=== PATIENT | female | born 1960 | race Caucasian/White ===

== ENCOUNTER → 2020-06-18 | Outpatient (CLI) | payer OTHER ==
[~2020-06-18] MED LIST: AMOXICILLIN500 M2 PO; CALCIUM 6001 TA1; CARVEDILOL3.125 MG PO; CLEOCIN150 MG PO; FORTICAL200 IU/ACT; NORCO 10-325 T1 EACH PO; THE MEDICINE S400 IU
== END | disposition home or self-care (01) ==
LOC: CARD 06-12 08:30
PROVIDERS: ATTEND Internal Medicine Cardiovascular Disease
DX: R06.09 Other forms of dyspnea (principal)

== ENCOUNTER 2020-09-14 20:14 | Emergency (ER) | payer BC ==
[~2020-09-14] VITALS: Wt 113.4 kg
[2020-09-14 20:37] LABS: BASO # 0.1 10*3/uL (0.0-0.1); EOS # 0.1 10*3/uL (0.0-0.4); EOS % 1.9 % (1.0-4.0); HEMATOCRIT 43.9 % (37.0-47.0); LYMPH # 1.9 10*3/uL (1.3-4.4); LYMPH % 27.9 % (27.0-41.0); MEAN CELL VOLUME 86.2 fl (81.0-99.0); MEAN CORPUSCULAR HGB 28.5 pg (27.0-31.0); MONO # 0.4 10*3/uL (0.1-1.0); MONO % 6.1 % (3.0-9.0); NEUT # 4.2 10*3/uL (2.3-7.9); PLATELET COUNT AUTOMATED 189 10*3/uL (130-400); RED BLOOD COUNT 5.09 10*6/uL (4.10-5.10); RED CELL DISTRI WIDTH 12.7 % (0-14.5); WHITE BLOOD COUNT 6.7 10*3/uL (4.8-10.8)
[2020-09-14 20:47] LABS: ACT PARTIAL THROMBO TIME 26.4 SECONDS (20.0-32.1)
[2020-09-14 20:54] LABS: ALBUMIN 3.8 gm/dl (3.1-4.5); ALKALINE PHOSPHATASE 125 U/L (45-117); BUN 18 mg/dl (7-24); CHLORIDE 107 mmol/L (98-107); CREATININE 0.79 mg/dL (0.55-1.02); POTASSIUM 3.8 mmol/L (3.5-5.1); SGOT/AST 17 IU/L (3-35); SGPT/ALT 43 U/L (12-78); SODIUM 139 mmol/L (136-145); TOTAL PROTEIN 7.8 gm/dL (6.4-8.2)
[2020-09-14] MEDS ORDERED: ATORVASTATIN CA20 M1 PO (20:54)
[2020-09-14] MEDS ORDERED: VITAMIN D350 MC2 PO (20:55)
[2020-09-14] MEDS ORDERED: LOSARTAN POTASS25 M1 PO (20:55)
[2020-09-14] MEDS ORDERED: QUALITY CHOICE81 M1 PO (20:56)
[2020-09-14 20:57] LABS: TROPONIN I < 0.015 ng/ml (<0.045)
== END 2020-09-14 22:48 | disposition home or self-care (01) ==
LOC: ED 20:14
PROVIDERS: Internal Medicine
DX: I10 Essential (primary) hypertension (principal); R07.89 Other chest pain; R68.84 Jaw pain; Z79.899 Other long term (current) drug therapy; Z98.51 Tubal ligation status; Z79.82 Long term (current) use of aspirin; Z98.890 Other specified postprocedural states; Z87.891 Personal history of nicotine dependence

== ENCOUNTER → 2020-10-15 | Outpatient (CLI) | payer BC ==
[~2020-10-15] MED LIST changes: +ATORVASTATIN CA20 M1 PO; +LOSARTAN POTASS25 M1 PO; +QUALITY CHOICE81 M1 PO; +VITAMIN D350 MC2 PO
== END | disposition home or self-care (01) ==
LOC: CARD 00:02
PROVIDERS: ATTEND Internal Medicine Cardiovascular Disease
DX: R06.02 Shortness of breath (principal); R06.00 Dyspnea, unspecified

== ENCOUNTER → 2021-01-23 | Outpatient (CLI) | payer BC ==
[2021-01-23 13:20] LABS: BASO % 0.7 % (0.0-1.0); EOS # 0.1 10*3/uL (0.0-0.4); EOS % 2.5 % (1.0-4.0); HEMATOCRIT 42.3 % (37.0-47.0); LYMPH # 1.4 10*3/uL (1.3-4.4); LYMPH % 32.4 % (27.0-41.0); MEAN CELL VOLUME 87.4 fl (81.0-99.0); MEAN CORPUSCULAR HGB 28.5 pg (27.0-31.0); MEAN CORPUSCULAR HGB CONC 32.6 g/dl (33.0-37.0); MONO # 0.3 10*3/uL (0.1-1.0); MONO % 7.4 % (3.0-9.0); NEUT # 2.5 10*3/uL (2.3-7.9); NEUT % 56.8 % (47.0-73.0); PLATELET COUNT AUTOMATED 166 10*3/uL (130-400); RED BLOOD COUNT 4.84 10*6/uL (4.10-5.10); RED CELL DISTRI WIDTH 12.6 % (0-14.5); RETICULOCYTE % 1.91 % (0.50-2.50); WHITE BLOOD COUNT 4.3 10*3/uL (4.8-10.8)
[2021-01-23 13:21] LABS: BILIRUBIN Negative (Negative); BLOOD 1+ (Negative); CLARITY Clear (Clear); COLOR Yellow (Yellow); GLUCOSE Negative (Negative); KETONE Negative (Negative); LEUKO ESTERASE Negative (Negative); NITRITE Negative (Negative); PH 5.5 (4.5-8.0); SPECIFIC GRAVITY 1.015 (1.001-1.030)
[2021-01-23 13:56] LABS: BACTERIA TRACE; RBC 16-20 rbc/hpf (0-2)
[2021-01-23 14:04] LABS: ALBUMIN 3.7 gm/dl (3.1-4.5); ALKALINE PHOSPHATASE 126 U/L (45-117); BUN 15 mg/dl (7-24); CHLORIDE 108 mmol/L (98-107); CHOLESTEROL 167 mg/dL (<200); CREATININE 0.73 mg/dL (0.55-1.02); GAMMA GLUTAMYL TRANSPEPTIDASE 14 U/L (5-55); IRON 68 ug/dL (50-170); LDL CHOLESTEROL 92 mg/dL (9-159); POTASSIUM 3.7 mmol/L (3.5-5.1); SGOT/AST 19 IU/L (3-35); SGPT/ALT 43 U/L (12-78); SODIUM 138 mmol/L (136-145); T3 UPTAKE 30 % (31-39); THYROXINE (T4) TOTAL 6.8 ug/dl (4.8-13.9); TOTAL IRON BINDING CAPACITY 256 ug/dl (250-450); TOTAL PROTEIN 7.6 gm/dL (6.4-8.2); TRIGLYCERIDES 124 mg/dl (<150); URIC ACID 6.4 mg/dL (2.6-6.0)
[2021-01-23 14:47] LABS: FERRITIN 115.9 ng/mL (10.0-291.0); VITAMIN D, 25-HYDROXY 27.2 ng/mL (30-100)
[2021-01-24 08:08] LABS: RHEUMATOID ARTHRITIS FACTOR <10.0 IU/mL (0.0-13.9)
[2021-01-24 14:09] LABS: ANTI-DSDNA ANTIBODIES 1 IU/mL (0-9)
== END | disposition home or self-care (01) ==
LOC: LAB 12:58
PROVIDERS: ATTEND Family Medicine
DX: E55.9 Vitamin D deficiency, unspecified (principal); R79.89 Other specified abnormal findings of blood chemistry; R53.83 Other fatigue

== ENCOUNTER 2021-06-27 12:40 | Emergency (ER) | payer BC ==
[~2021-06-27] VITALS: Ht 170.1 cm; Wt 95.3 kg
[2021-06-27] MEDS ORDERED: NAPROXEN250 MG PO (17:37)
[2021-06-27] MEDS ORDERED: TYLENOL325 M1 PO (17:37)
== END 2021-06-27 18:00 | disposition home or self-care (01) ==
LOC: ED 12:40
DX: S82.142A Displaced bicondylar fracture of left tibia, initial encounter for closed fracture (principal); I10 Essential (primary) hypertension; Z79.899 Other long term (current) drug therapy; Z79.82 Long term (current) use of aspirin; W18.39XA Other fall on same level, initial encounter; Y93.89 Activity, other specified; Y92.89 Other specified places as the place of occurrence of the external cause; Y99.8 Other external cause status

== ENCOUNTER → 2021-07-07 | Outpatient (CLI) | payer BC ==
[~2021-07-07] MED LIST changes: +NAPROXEN250 MG PO; +TYLENOL325 M1 PO
== END | disposition home or self-care (01) ==
LOC: ORTHO 00:25
PROVIDERS: ATTEND Orthopaedic Surgery
DX: M17.12 Unilateral primary osteoarthritis, left knee (principal); M25.762 Osteophyte, left knee; S82.125D Nondisplaced fracture of lateral condyle of left tibia, subsequent encounter for closed fracture with routine healing; X58.XXXD Exposure to other specified factors, subsequent encounter

== ENCOUNTER → 2021-08-04 | Outpatient (CLI) | payer BC | END | disposition home or self-care (01) | LOC: ORTHO 00:40 | PROVIDERS: ATTEND Orthopaedic Surgery | DX: M25.762 Osteophyte, left knee (principal); M76.892 Other specified enthesopathies of left lower limb, excluding foot; S82.125D Nondisplaced fracture of lateral condyle of left tibia, subsequent encounter for closed fracture with routine healing; X58.XXXD Exposure to other specified factors, subsequent encounter ==

== ENCOUNTER 2021-09-09 13:29 | Emergency (ER) | payer BC ==
[~2021-09-09] VITALS: Ht 170.1 cm; Wt 99.3 kg
== END 2021-09-09 16:05 | disposition home or self-care (01) ==
LOC: ED 13:29
DX: S09.90XA Unspecified injury of head, initial encounter (principal); Z79.899 Other long term (current) drug therapy; Z79.82 Long term (current) use of aspirin; Z98.51 Tubal ligation status; W18.39XA Other fall on same level, initial encounter; Y93.89 Activity, other specified; Y92.89 Other specified places as the place of occurrence of the external cause; Y99.8 Other external cause status

== ENCOUNTER → 2022-08-18 | Outpatient (CLI) | payer BC ==
[2022-08-18 17:48] LABS: BASO # 0.1 10*3/uL (0.0-0.1); BASO % 1.6 % (0.0-1.0); EOS # 0.1 10*3/uL (0.0-0.4); EOS % 2.7 % (1.0-4.0); HEMATOCRIT 41.5 % (37.0-47.0); LYMPH # 1.3 10*3/uL (1.3-4.4); LYMPH % 33.8 % (27.0-41.0); MEAN CELL VOLUME 87.7 fl (81.0-99.0); MEAN CORPUSCULAR HGB 28.3 pg (27.0-31.0); MEAN CORPUSCULAR HGB CONC 32.3 g/dl (33.0-37.0); MEAN PLATELET VOLUME 10.6 fl (9.6-12.3); MONO # 0.3 10*3/uL (0.1-1.0); MONO % 8.6 % (3.0-9.0); PLATELET COUNT AUTOMATED 192 10*3/uL (130-400); RED BLOOD COUNT 4.73 10*6/uL (4.10-5.10); RED CELL DISTRI WIDTH 12.7 % (0-14.5); WHITE BLOOD COUNT 3.7 10*3/uL (4.8-10.8)
[2022-08-18 18:02] LABS: ALKALINE PHOSPHATASE 140 U/L (46-116); BUN 14 mg/dl (9-23); CHLORIDE 100 mmol/L (98-107); POTASSIUM 3.9 mmol/L (3.4-5.1); SGPT/ALT 48 U/L (10-49); TOTAL PROTEIN 7.4 gm/dL (6.0-8.0)
[2022-08-20 18:06] LABS: METHYLMALONIC ACID 174 nmol/L (0-378)
== END | disposition home or self-care (01) ==
LOC: MAMMO 08-10 07:30 → LAB 16:54
PROVIDERS: ATTEND Internal Medicine
DX: Z12.31 Encounter for screening mammogram for malignant neoplasm of breast (principal); D70.9 Neutropenia, unspecified; D69.6 Thrombocytopenia, unspecified; N64.9 Disorder of breast, unspecified

== ENCOUNTER → 2022-12-18 | Outpatient (CLI) | payer BC | END | disposition home or self-care (01) | LOC: MRI 01:27 | PROVIDERS: ATTEND Family Medicine | DX: G43.909 Migraine, unspecified, not intractable, without status migrainosus (principal); I10 Essential (primary) hypertension ==

== ENCOUNTER → 2023-01-04 | Outpatient (CLI) | payer BC | END | disposition home or self-care (01) | LOC: US 01:53 | PROVIDERS: ATTEND Family Medicine | DX: I65.23 Occlusion and stenosis of bilateral carotid arteries (principal); R51.9 Headache, unspecified ==